=== PATIENT | male | born 1945 | race Caucasian/White ===

== ENCOUNTER 2016-12-25 16:19 | Emergency (ER) | payer OTHER ==
[2016-12-25 16:33] VITALS: BMI 31.8
--- NOTE | 2016-12-25 17:05 | PDOC ---
History of Present Illness - General History Source: Patient, Family, Old Records Exam Limitations: No Limitations - History of Present Illness Initial Comments: 12/25/16 17:36 The patient is a 71 year old male presenting with his , with a significant past medical history of diabetes, hypertension, COPD, CVA, HLD, and CAD s/p cardiac stents (x6) (on Plavix), who presents to the emergency department with hematuria and urgency since this morning. He also reports persistent back pain but is not sure if it correlates with his chief complaints. He reports that he took 1 dose of Cipro that his had. The patient has an aortic valve replacement scheduled for 3 weeks from this date. The patient denies chest pain, shortness of breath, headache and dizziness. Denies fever, chills, nausea, vomit, diarrhea and constipation. Allergies: None Past surgical history: Cardiac stents (x6) Social history: No alcohol, tobacco PMD: Dr. Burton Chappell [employer]working [employer] - Dr. 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 Mclaughlin <Shola Martino - Last Filed: 12/25/16 17:36> <Tressa Rees - Last Filed: 12/25/16 22:33> - General Chief Complaint: Hematuria Stated Complaint: BLOOD IN URINE Time Seen by Provider: 12/25/16 16:42 Past History <Shola Martino - Last Filed: 12/25/16 17:36> - Past Medical History Anemia: No Asthma: Yes Cancer: No Cardiac Disorders: Yes (hx chest pains, cardiac stents,valve problems) CVA: Yes (no weekness.) COPD: Yes CHF: No Dementia: No Diabetes: No GI Disorders: No Disorders: No HTN: No Hypercholesterolemia: Yes Liver Disease: No Seizures: No Thyroid Disease: No - Surgical History Abdominal Surgery: No Appendectomy: No Cardiac Surgery: Yes (cardiac stents) Cholecystectomy: No Lung Surgery: No Neurologic Surgery: No Orthopedic Surgery: No - Psycho/Social/Smoking Cessation Hx Anxiety: No Suicidal Ideation: No Smoking History: Never smoked Have you smoked in the past 12 months: No Information on smoking cessation initiated: No Hx Alcohol Use: No Drug/Substance Use Hx: No Substance Use Type: None <Tressa Rees - Last Filed: 12/25/16 22:33> - Past Medical History Allergies/Adverse Reactions: Allergies Allergy/AdvReac Type Severity Reaction Status Date / Time No Known Allergies Allergy Verified 12/25/16 16:23 Home Medications: Ambulatory Orders Aspirin [ASA -] 81 mg PO DAILY 12/25/16 Atorvastatin Ca [Lipitor] 80 mg PO HS 12/25/16 Clopidogrel Bisulfate [Plavix -] 75 mg PO DAILY 12/25/16 Cyanocobalamin (Vitamin B-12) [Vitamin B-12] 1,000 mcg SL DAILY 12/25/16 Glimepiride [Amaryl -] 4 mg PO DAILY@0700 12/25/16 Lisinopril [Zestril] 2.5 mg PO DAILY 12/25/16 Metoprolol Succinate [Toprol Xl -] 25 mg PO DAILY 12/25/16 Prednisone [Deltasone -] 10 mg PO DAILY 12/25/16 Review of Systems - Review of Systems Able to Perform ROS?: Yes Comments:: 12/25/16 17:36 GENERAL/CONSTITUTIONAL: No fever or chills. No weakness. HEAD, EYES, EARS, NOSE AND THROAT: No change in vision. No ear pain or discharge. No sore throat. CARDIOVASCULAR: No chest pain or shortness of breath RESPIRATORY: No cough, wheezing, or hemoptysis. GASTROINTESTINAL: No nausea, vomiting, diarrhea or constipation. GENITOURINARY: (+) Hematuria and urgency. MUSCULOSKELETAL: (+) Back pain. No joint or muscle swelling or pain. No neck pain. SKIN: No rash NEUROLOGIC: No headache, vertigo, loss of consciousness, or change in strength/ sensation. ENDOCRINE: No increased thirst. No abnormal weight change HEMATOLOGIC/LYMPHATIC: No anemia, easy bleeding, or history of blood clots. ALLERGIC/IMMUNOLOGIC: No hives or skin allergy. <Shola Martino - Last Filed: 12/25/16 17:36> *Physical Exam - Vital Signs Last Vital Signs Temp Pulse Resp BP Pulse Ox 98.6 F 85 18 128/54 95 12/25/16 16:23 12/25/16 16:23 12/25/16 16:23 12/25/16 16:23 12/25/16 16:23 - Physical Exam Comments: 12/25/16 17:37 GENERAL: Awake, alert, and fully oriented, in no acute distress HEAD: No signs of trauma, normocephalic, atraumatic EYES: PERRLA, EOMI, sclera anicteric, conjunctiva clear ENT: Auricles normal inspection, hearing grossly normal, nares patent, oropharynx clear without exudates. Moist mucosa NECK: Normal ROM, supple, no lymphadenopathy, JVD, or masses LUNGS: No distress, speaks full sentences, clear to auscultation bilaterally HEART: (+) Murmur. Regular rate and rhythm, normal S1 and S2, no rubs or gallops , peripheral pulses normal and equal bilaterally. ABDOMEN: (+) Protuberant belly. Soft, nontender, normoactive bowel sounds. No guarding, no rebound. No masses EXTREMITIES: Normal inspection, Normal range of motion, no edema. No clubbing or cyanosis. NEUROLOGICAL: Cranial nerves II through XII grossly intact. Normal speech, normal gait, no focal sensorimotor deficits SKIN: Warm, Dry, normal turgor, no rashes or lesions noted. <Shola Martino - Last Filed: 12/25/16 17:36> - Vital Signs Last Vital Signs Temp Pulse Resp BP Pulse Ox 98.6 F 85 18 128/54 95 12/25/16 16:23 12/25/16 16:23 12/25/16 16:23 12/25/16 16:23 12/25/16 16:23 <Tressa Rees - Last Filed: 12/25/16 22:33> ED Treatment Course - LABORATORY CBC & Chemistry Diagram: 12/25/16 17:20 12/25/16 17:20 <Shola Martino - Last Filed: 12/25/16 17:36> - LABORATORY CBC & Chemistry Diagram: 12/25/16 17:20 12/25/16 17:20 <Tressa Rees - Last Filed: 12/25/16 22:33> Medical Decision Making - Medical Decision Making 12/25/16 21:07 71-year-old male presents with hematuria, increased frequency and dysuria that started today -He denies fever, chills, chest pain, cough, dizziness, abdominal pain Past medical history significant for aortic stenosis, and he is scheduled for an aortic valve replacement on January 16. PCP is Dr. Mac Chappell He also has coronary artery disease, status post 6 cardiac stents, kidney stones CAT scan and pelvis with contrast showed 1.2 cm indeterminate hypodensity lateral mid left kidney and also 2.1 cm focus. Mid right kidney Multiple, additional bilateral renal cysts. -none nonobstructing stones and cortical scarring bilateral kidneys -There is a 5 mm dependent stone in the bladder. Enlarged prostate No bowel obstruction -No colitis, no diverticulitis -No free fluid, no free air -. Normal appendix unremarkable, pancreas and gallbladder-. Small umbilical and left inguinal region hernias containing fat, trace pericardial fluid IMP kidney stones/hematuria -pt given ABX,flomax and referred to urologist - 12/25/16 22:27 <Tressa Rees - Last Filed: 12/25/16 22:33> *DC/Admit/Observation/Transfer - Attestations Scribe Attestion: 12/25/16 17:37 Documentation prepared by Shola Martino, acting as medical billing assistant for Tressa Rees MD <Shola Martino - Last Filed: 12/25/16 17:36> <Tressa Rees - Last Filed: 12/25/16 22:33> Diagnosis at time of Disposition: Hematuria, Calculus of kidney - Discharge Dispostion Disposition: HOME - Referrals Referrals: Burton Chappell MD [Primary Care Provider] - - Patient Instructions Printed Discharge Instructions: DI for Hematuria, DI for Kidney Stones Additional Instructions: please follow up this week with Dr Chappell You should see a urologist if you have persistent symptoms Return for any worsening symptoms
[2016-12-25 17:28] LABS: BASOPHIL 0.9 % (0-2.0); EOSINOPHIL 0.3 % (0-4.5); MCH 28.3 pg (25.7-33.7); MCHC 32.7 g/dl (32.0-35.9); MEAN CELL VOLUME 86.6 fl (80-96); MEAN PLT VOLUME 7.3 fl (7.5-11.1); NEUTROPHILS 75.4 % (42.8-82.8); PLATELET COUNT 231 K/MM3 (134-434); RDW 13.8 % (11.9-15.9); WHITE BLOOD COUNT 11.6 K/mm3 (4.0-10.0)
[2016-12-25 17:40] LABS: INR 1.04 (0.82-1.09); PROTHROMBIN TIME (PATIENT) 11.5 SEC (9.98-11.88)
[2016-12-25 17:54] LABS: ALBUMIN 3.7 g/dl (3.4-5.0); ANION GAP 7 (8-16); BILIRUBIN,TOTAL 0.5 mg/dL (0.2-1.0); CALCIUM 9.1 mg/dL (8.5-10.1); CO2 30 mmol/L (21-32); CREATININE 0.9 mg/dL (0.7-1.3); GLUCOSE,RANDOM 106 mg/dL (74-106); SGOT/AST 30 U/L (15-37); SGPT/ALT 40 U/L (12-78)
[2016-12-25 17:55] LABS: ALK PHOS 78 U/L (45-117); TOT PROT 7.1 g/dl (6.4-8.2)
[2016-12-25 18:04] LABS: URINE APPEARANCE CLEAR; URINE BILIRUBIN NEGATIVE (NEGATIVE); URINE COLOR YELLOW; URINE GLUCOSE (UA) 1+ (NEGATIVE); URINE KETONE NEGATIVE (NEGATIVE); URINE LEUK ESTERASE NEGATIVE (NEGATIVE); URINE NITRITE NEGATIVE (NEGATIVE); URINE UROBILINOGEN NEGATIVE E.U./dl (0.2-1.0)
[2016-12-25 18:07] LABS: URINE BACTERIA RARE /hpf (NONE SEEN); URINE BLOOD 3+ (NEGATIVE); URINE MUCUS RARE; URINE PROTEIN 1+ (NEGATIVE); URINE RBC 1020 /hpf (0-3); URINE WBC 99 /hpf (3-5)
[2016-12-25] MEDS ORDERED: SODIUM CHLORIDE 500 ML IV STA (19:38)
[2016-12-25] MEDS ORDERED: TAMSULOSIN HCL 0.4 MG CAP.ER.24H (FP) PO ONE (22:25)
[2016-12-25] MEDS ORDERED: LEVOFLOXACIN 500 MG TABLET (FP) ONE (22:35)
[2016-12-25] MEDS ORDERED: TAMSULOSIN HCL 0.4 MG CAP.ER.24H (FP) ONE (22:35)
[2016-12-25 22:55] VITALS: BP 131/67; PULSE 80; TEMP 98.2
== END 2016-12-25 22:45 | disposition home or self-care (01) ==
LOC: JER 16:19
PROC: 3E0337Z Introduction of Electrolytic and Water Balance Substance into Peripheral Vein, Percutaneous Approach (ICD-10-PCS; principal; 2016-12-25)
DX: N20.0 Calculus of kidney (principal); Z87.442 Personal history of urinary calculi; I25.10 Atherosclerotic heart disease of native coronary artery without angina pectoris; I10 Essential (primary) hypertension; Z95.5 Presence of coronary angioplasty implant and graft; E11.9 Type 2 diabetes mellitus without complications; Z79.84 Long term (current) use of oral hypoglycemic drugs; J44.9 Chronic obstructive pulmonary disease, unspecified; E78.00 Pure hypercholesterolemia, unspecified; I35.0 Nonrheumatic aortic (valve) stenosis; Z86.73 Personal history of transient ischemic attack (TIA), and cerebral infarction without residual deficits; Z79.01 Long term (current) use of anticoagulants
CPT/HCPCS: 36415; 74177-TC; 80053; 81003; 81015; 85025; 85610; 87086; 96360; 99282-25

== ENCOUNTER 2020-01-22 09:55 | Day surgery (SDC) | payer OTHER ==
[2020-01-13 15:50] VITALS: BMI 30.9
[2020-01-22] MEDS ORDERED: LIDOCAINE HCL/PF 2% SDV 5ML VIAL ONE (10:23)
[2020-01-22] MEDS ORDERED: PROPOFOL 20 ML ONE ×2 (10:23)
[2020-01-22 12:26] VITALS: TEMP 98.2
[2020-01-22 13:14] VITALS: BP 120/66; PULSE 82
--- NOTE | 2020-01-27 15:14 | PATH ---
Surgical Pathology Report Patient Name: TEDDY PARK Med. Rec. #: [id number] /Age/Gender: 1945 (Age: 74) / M Account: [id number] Location: [facility] AMBUL[facility]ORY Taken: 01/22/2020 Received: 01/22/2020 Reported: 01/27/2020 Physicians: Krissy Cao M.D. Specimen(s) Received A: SECOND PORTION OF DUODENUM B: GASTRIC ANTRUM C: GE JUNCTION D: MID ESOPHAGUS Clinical History Dysphagia Postoperative diagnosis: Gastritis Final Diagnosis A. SECOND PORTION OF DUODENUM, BIOPSY: DUODENAL MUCOSA WITH NO PATHOLOGIC FINDINGS. B. GASTRIC ANTRUM, BIOPSY: MILD CHRONIC GASTRITIS WITH FEATURES OF REACTIVE GASTROPATHY. IMMUNOSTAIN IS NEGATIVE FOR H. PYLORI ORGANISMS. C. GE JUNCTION, BIOPSY: ESOPHAGOGASTRIC JUNCTIONAL (SQUAMOCOLUMNAR) MUCOSA SHOWING MILD CHRONIC INFLAMMATION. NEGATIVE FOR INTESTINAL METAPLASIA. D. MIDESOPHAGUS, BIOPSY: ESOPHAGEAL (SQUAMOUS) MUCOSA WITH NO PATHOLOGIC FINDINGS. NO COLUMNAR EPITHELIUM/INTESTINAL METAPLASIA IS IDENTIFIED. Electronically Signed Vika Medel M.D. Gross Description A. Received in formalin, labeled "biopsy second portion of duodenum" is a bright, irregular portion of soft tissue measuring 0.3 cm. in greatest dimension. The specimen is submitted in toto in one cassette. B. Received in formalin, labeled "biopsy gastric antrum" is a bright, irregular portion of soft tissue measuring 0.5 cm. in greatest dimension. The specimen is submitted in toto in one cassette. C. Received in formalin, labeled "biopsy GE junction" is a bright, irregular portion of soft tissue measuring 0.5 cm. in greatest dimension. The specimen is submitted in toto in one cassette. D. Received in formalin, labeled "biopsy mid esophagus" is a bright, irregular portion of soft tissue measuring 0.2 cm. in greatest dimension. The specimen is submitted in toto in one cassette. 01/23/2020 [facility]01/23/2020
== END 2020-01-22 12:55 | disposition home or self-care (01) ==
LOC: FASU 09:55
PROVIDERS: ATTEND Internal Medicine Gastroenterology
PROC: 0DB68ZX Excision of Stomach, Via Natural or Artificial Opening Endoscopic, Diagnostic (ICD-10-PCS; 2020-01-22)
PROC: 0DB48ZX Excision of Esophagogastric Junction, Via Natural or Artificial Opening Endoscopic, Diagnostic (ICD-10-PCS; 2020-01-22)
PROC: 0DB28ZX Excision of Middle Esophagus, Via Natural or Artificial Opening Endoscopic, Diagnostic (ICD-10-PCS; 2020-01-22)
PROC: 0DB98ZX Excision of Duodenum, Via Natural or Artificial Opening Endoscopic, Diagnostic (ICD-10-PCS; principal; 2020-01-22 11:50)
DX: K29.50 Unspecified chronic gastritis without bleeding (principal); K31.9 Disease of stomach and duodenum, unspecified; K20.9 Esophagitis, unspecified; R13.10 Dysphagia, unspecified
CPT/HCPCS: 88305-TC; 88342-TC

== ENCOUNTER 2020-08-07 04:12 | Inpatient (IN) | payer OTHER ==
[2020-08-07] MEDS ORDERED: ACETAMINOPHEN 1000 MG/100 ML VIAL (NON FORMULARY) IVPB ONE (08:22)
[2020-08-07] MEDS ORDERED: DEXTROSE 5%-0.45% SALINE 1,000 ML IV SCH (08:30)
[2020-08-07] MEDS ORDERED: ceFAZolin 2 GRAM PREMIX BAG IVPB SCH (09:00)
[2020-08-07] MEDS ORDERED: ALBUTEROL SO4 HFA INHALER IH PRN (09:01)
[2020-08-07] MEDS ORDERED: ceFAZolin SODIUM 1 GM VIAL ONE (09:13)
[2020-08-07] MEDS ORDERED: HEPARIN NA (PORCINE) 5,000 UNITS/ML 1ML VIAL SQ SCH ×2 (10:00)
[2020-08-07] MEDS ORDERED: ACETAMINOPHEN INJECTION 100 ML IVPB ONE (10:01)
[2020-08-07 10:21] LABS: BASO % 0.6 % (0-2.0); EOS % 0.4 % (0-4.5); HEMATOCRIT 36.3 % (35.4-49); HEMOGLOBIN 12.1 GM/dL (11.7-16.9); LYMPH % 7.6 % (8-40); MCH 26.9 pg (25.7-33.7); MCHC 33.3 g/dl (32.0-35.9); MEAN CELL VOLUME 80.9 fl (80-96); MEAN PLT VOLUME 7.5 fl (7.5-11.1); MONO % 4.3 % (3.8-10.2); NEUT % 87.1 % (42.8-82.8); PLATELET COUNT 246 K/MM3 (134-434); RBC 4.49 M/mm3 (4.00-5.60); RDW 14.2 % (11.9-15.9); WHITE BLOOD COUNT 12.9 K/mm3 (4.0-10.0)
[2020-08-07 10:40] LABS: CALCIUM 8.9 mg/dL (8.5-10.1); POTASSIUM 3.7 mmol/L (3.5-5.1)
[2020-08-07 10:41] LABS: ALBUMIN 3.3 g/dl (3.4-5.0); BLOOD UREA NITROGEN 13.2 mg/dL (7-18)
[2020-08-07 10:44] LABS: CREATININE 0.8 mg/dL (0.55-1.3)
[2020-08-07 10:46] LABS: TOT PROT 6.6 g/dl (6.4-8.2)
[2020-08-07 12:23] LABS: EPI CELLS 1 /uL (0-25.1); HYALINE CASTS 6 /uL (0-3.1); URINE APPEARANCE CLOUDY; URINE BACTERIA 1106 /uL (0-1359); URINE BILIRUBIN NEGATIVE (NEGATIVE); URINE COLOR YELLOW; URINE GLUCOSE (UA) NEGATIVE (NEGATIVE); URINE KETONE NEGATIVE (NEGATIVE); URINE LEUK ESTERASE 2+ (NEGATIVE); URINE NITRITE NEGATIVE (NEGATIVE); URINE PROTEIN 1+ (NEGATIVE); URINE RBC 72 /uL (0-23.9); URINE UROBILINOGEN 0.2 mg/dL (0.2-1.0); URINE WBC 728 /uL (0-25.8)
[2020-08-07] MEDS: PIPERACILLIN/TAZOB 3.375 GM 3.375 GM in DEXTROSE 5%-WATER - 50 ML IVPB SCH ×3 (13:36→22:42)
[2020-08-07] MEDS: BUDESONIDE/FORMETEROL FUMARATE 80/4.5 mcg INHALER IH SCH ×2 (15:23→22:43)
[2020-08-07] MEDS: ASPIRIN 81 MG CHEWABLE TABLETS PO SCH (15:23)
[2020-08-07] MEDS: predniSONE 5 MG TABLET (UD) PO SCH (15:23)
[2020-08-07] MEDS: INSULIN SLIDING SCALE (NOVOLOG) 1 VIAL SQ SCH ×3 (15:23→22:43)
[2020-08-07] MEDS ORDERED: DEXTROSE 5%-WATER - 50 ML IVPB ONE ×2 (17:37→22:01)
[2020-08-07] MEDS ORDERED: PIPERACILLIN/TAZOBACTAM 3.375 GM VIAL IVPB ONE ×2 (17:37→22:00)
[2020-08-07] MEDS: TAMSULOSIN HCL 0.4 MG CAP PO SCH (20:18)
[2020-08-07] MEDS: metoPROLOL SUCCINATE 25 MG TAB.SR.24H (FP) PO SCH (22:42)
[2020-08-07] MEDS: EZETIMIBE 10 MG TABLET (FP) PO SCH (22:42)
[2020-08-07] MEDS: ATORVASTATIN CA 80 MG TABLET (FP) PO SCH (22:42)
[2020-08-08] MEDS ORDERED: PIPERACILLIN/TAZOBACTAM 3.375 GM VIAL IVPB ONE ×3 (03:09→14:57)
[2020-08-08] MEDS ORDERED: DEXTROSE 5%-WATER - 50 ML IVPB ONE ×3 (03:10→14:57)
[2020-08-08] MEDS: PIPERACILLIN/TAZOB 3.375 GM 3.375 GM in DEXTROSE 5%-WATER - 50 ML IVPB SCH ×3 (03:43→15:15)
[2020-08-08] MEDS: ACETAMINOPHEN 325 MG TABLET (FP) PO PRN ×2 (03:43→21:19)
[2020-08-08] MEDS: INSULIN SLIDING SCALE (NOVOLOG) 1 VIAL SQ SCH ×3 (06:23→17:10)
[2020-08-08 08:58] LABS: BASO % 0.2 % (0-2.0); EOS % 0.2 % (0-4.5); HEMATOCRIT 36.4 % (35.4-49); HEMOGLOBIN 11.8 GM/dL (11.7-16.9); LYMPH % 9.4 % (8-40); MCH 26.4 pg (25.7-33.7); MCHC 32.3 g/dl (32.0-35.9); MEAN CELL VOLUME 81.9 fl (80-96); MEAN PLT VOLUME 8.2 fl (7.5-11.1); MONO % 8.5 % (3.8-10.2); NEUT % 81.7 % (42.8-82.8); PLATELET COUNT 225 K/MM3 (134-434); RBC 4.45 M/mm3 (4.00-5.60); RDW 14.5 % (11.9-15.9); WHITE BLOOD COUNT 21.7 K/mm3 (4.0-10.0)
[2020-08-08 09:12] LABS: POTASSIUM 3.3 mmol/L (3.5-5.1)
[2020-08-08 09:15] LABS: ALBUMIN 2.9 g/dl (3.4-5.0); CALCIUM 8.7 mg/dL (8.5-10.1)
[2020-08-08 09:16] LABS: BLOOD UREA NITROGEN 16.2 mg/dL (7-18); MAGNESIUM 1.7 mg/dL (1.8-2.4)
[2020-08-08 09:18] LABS: PHOSPHOROUS 2.9 mg/dL (2.5-4.9)
[2020-08-08 09:19] LABS: CREATININE 0.9 mg/dL (0.55-1.3)
[2020-08-08 09:20] LABS: BILIRUBIN,TOTAL 1.3 mg/dL (0.2-1); TOT PROT 6.2 g/dl (6.4-8.2)
[2020-08-08] MEDS ORDERED: PT OWN MED DRAWER 7, Y5N ONE ×2 (09:26→20:36)
[2020-08-08] MEDS: ASPIRIN 81 MG CHEWABLE TABLETS PO SCH (09:33)
[2020-08-08] MEDS: LACTATED RINGERS SOLUTION 1,000 ML IV SCH (09:33)
[2020-08-08] MEDS: predniSONE 5 MG TABLET (UD) PO SCH (09:33)
[2020-08-08] MEDS: ENOXAPARIN NA (PORCINE) 40 MG/0.4 ML DISP.SYRIN SQ SCH (09:33)
[2020-08-08] MEDS: TAMSULOSIN HCL 0.4 MG CAP PO SCH (09:33)
[2020-08-08] MEDS: BUDESONIDE/FORMETEROL FUMARATE 80/4.5 mcg INHALER IH SCH ×3 (09:34→21:20)
[2020-08-08] MEDS: metoPROLOL SUCCINATE 25 MG TAB.SR.24H (FP) PO SCH ×3 (09:34→21:20)
[2020-08-08] MEDS ORDERED: MAGNESIUM OXIDE 400 MG TABLET (FP) PO ONE (10:15)
[2020-08-08] MEDS ORDERED: POTASSIUM CHLORIDE TABS 20 MEQ TABLET.ER (FP) PO ONE (10:15)
[2020-08-08 11:06] LABS: ANISOCYTOSIS 0; HELMET CELLS 0; HOWELL-JOLLY BODIES 0; MACROCYTOSIS 0; OVALOCYTE 0; PLATELET ESTIMATE NORMAL; ROULEAU 0; SICKELED CELLS 0; TARGET CELLS 0; TEAR DROP CELLS 0; TOXIC GRANULATION 0
[2020-08-08] MEDS: AMPICILLIN NA/SULBACTAM NA 3 GM in SODIUM CHLORIDE 100 ML IVPB SCH (20:42)
[2020-08-08] MEDS: EZETIMIBE 10 MG TABLET (FP) PO SCH ×2 (20:50→21:20)
[2020-08-08] MEDS: ATORVASTATIN CA 80 MG TABLET (FP) PO SCH ×2 (20:50→21:20)
[2020-08-09] MEDS: LACTATED RINGERS SOLUTION 1,000 ML IV SCH ×2 (00:36→09:46)
[2020-08-09] MEDS ORDERED: PT OWN MED DRAWER 7, Y5N ONE ×5 (01:27→20:15)
[2020-08-09] MEDS: AMPICILLIN NA/SULBACTAM NA 3 GM in SODIUM CHLORIDE 100 ML IVPB SCH ×4 (02:22→21:00)
[2020-08-09] MEDS: INSULIN SLIDING SCALE (NOVOLOG) 1 VIAL SQ SCH ×3 (06:19→17:03)
[2020-08-09 08:51] LABS: HEMATOCRIT 33.2 % (35.4-49); HEMOGLOBIN 10.9 GM/dL (11.7-16.9); MCH 26.7 pg (25.7-33.7); MCHC 32.9 g/dl (32.0-35.9); MEAN CELL VOLUME 81.3 fl (80-96); PLATELET COUNT 132 K/MM3 (134-434); RBC 4.09 M/mm3 (4.00-5.60); RDW 14.7 % (11.9-15.9); WHITE BLOOD COUNT 15.6 K/mm3 (4.0-10.0)
[2020-08-09 09:01] LABS: POTASSIUM 4.2 mmol/L (3.5-5.1)
[2020-08-09 09:03] LABS: CALCIUM 8.3 mg/dL (8.5-10.1)
[2020-08-09 09:04] LABS: ALBUMIN 2.4 g/dl (3.4-5.0); BLOOD UREA NITROGEN 17.1 mg/dL (7-18); MAGNESIUM 1.9 mg/dL (1.8-2.4)
[2020-08-09 09:07] LABS: CREATININE 0.6 mg/dL (0.55-1.3); PHOSPHOROUS 2.2 mg/dL (2.5-4.9)
[2020-08-09 09:08] LABS: BILIRUBIN,TOTAL 0.6 mg/dL (0.2-1); TOT PROT 5.4 g/dl (6.4-8.2)
[2020-08-09] MEDS ORDERED: NAPH,MB-DB/K PH,MBDB POWDER PACKET PO ONE (09:44)
[2020-08-09] MEDS: ASPIRIN 81 MG CHEWABLE TABLETS PO SCH (09:47)
[2020-08-09] MEDS: predniSONE 5 MG TABLET (UD) PO SCH (09:47)
[2020-08-09] MEDS: TAMSULOSIN HCL 0.4 MG CAP PO SCH (09:47)
[2020-08-09] MEDS: ACETAMINOPHEN 325 MG TABLET (FP) PO PRN (09:47)
[2020-08-09] MEDS: metoPROLOL SUCCINATE 25 MG TAB.SR.24H (FP) PO SCH ×2 (09:48→21:01)
[2020-08-09] MEDS: ENOXAPARIN NA (PORCINE) 40 MG/0.4 ML DISP.SYRIN SQ SCH (09:48)
[2020-08-09] MEDS: BUDESONIDE/FORMETEROL FUMARATE 80/4.5 mcg INHALER IH SCH ×2 (09:49→21:01)
[2020-08-09] MEDS ORDERED: ACETAMINOPHEN 325 MG TABLET (FP) PO PRN (11:51)
[2020-08-09] MEDS: LACTOBACILLUS ACIDOPHILUS 1 TABLET PO SCH (14:03)
[2020-08-09] MEDS: EZETIMIBE 10 MG TABLET (FP) PO SCH (21:01)
[2020-08-09] MEDS: ATORVASTATIN CA 80 MG TABLET (FP) PO SCH (21:01)
[2020-08-10] MEDS ORDERED: PT OWN MED DRAWER 7, Y5N ONE ×3 (01:14→15:55)
[2020-08-10] MEDS: LACTATED RINGERS SOLUTION 1,000 ML IV SCH ×2 (01:37→21:50)
[2020-08-10] MEDS: AMPICILLIN NA/SULBACTAM NA 3 GM in SODIUM CHLORIDE 100 ML IVPB SCH ×4 (02:13→21:50)
[2020-08-10] MEDS: INSULIN SLIDING SCALE (NOVOLOG) 1 VIAL SQ SCH ×3 (06:00→17:36)
[2020-08-10 08:36] LABS: HEMATOCRIT 34.6 % (35.4-49); HEMOGLOBIN 11.3 GM/dL (11.7-16.9); MCH 26.7 pg (25.7-33.7); MCHC 32.6 g/dl (32.0-35.9); MEAN CELL VOLUME 81.7 fl (80-96); MEAN PLT VOLUME 8.8 fl (7.5-11.1); PLATELET COUNT 197 K/MM3 (134-434); RBC 4.24 M/mm3 (4.00-5.60); RDW 14.4 % (11.9-15.9); WHITE BLOOD COUNT 13.7 K/mm3 (4.0-10.0)
[2020-08-10] MEDS: predniSONE 5 MG TABLET (UD) PO SCH ×2 (08:42→09:00)
[2020-08-10] MEDS: TAMSULOSIN HCL 0.4 MG CAP PO SCH ×2 (08:42→09:00)
[2020-08-10] MEDS: ENOXAPARIN NA (PORCINE) 40 MG/0.4 ML DISP.SYRIN SQ SCH ×2 (08:42→09:01)
[2020-08-10] MEDS: LACTOBACILLUS ACIDOPHILUS 1 TABLET PO SCH ×2 (08:42→09:00)
[2020-08-10] MEDS: metoPROLOL SUCCINATE 25 MG TAB.SR.24H (FP) PO SCH ×3 (08:43→21:49)
[2020-08-10] MEDS: ASPIRIN 81 MG CHEWABLE TABLETS PO SCH ×2 (08:43→09:00)
[2020-08-10] MEDS: BUDESONIDE/FORMETEROL FUMARATE 80/4.5 mcg INHALER IH SCH ×3 (08:43→21:54)
[2020-08-10 08:44] LABS: POTASSIUM 3.8 mmol/L (3.5-5.1)
[2020-08-10 08:50] LABS: ALBUMIN 2.8 g/dl (3.4-5.0); BLOOD UREA NITROGEN 9.7 mg/dL (7-18); CALCIUM 8.7 mg/dL (8.5-10.1); MAGNESIUM 1.9 mg/dL (1.8-2.4)
[2020-08-10 08:55] LABS: BILIRUBIN,TOTAL 0.6 mg/dL (0.2-1); TOT PROT 6.3 g/dl (6.4-8.2)
[2020-08-10 09:06] LABS: CREATININE 0.6 mg/dL (0.55-1.3); PHOSPHOROUS 2.9 mg/dL (2.5-4.9)
[2020-08-10] MEDS: EZETIMIBE 10 MG TABLET (FP) PO SCH (21:49)
[2020-08-10] MEDS: ATORVASTATIN CA 80 MG TABLET (FP) PO SCH (21:49)
[2020-08-11] MEDS: AMPICILLIN NA/SULBACTAM NA 3 GM in SODIUM CHLORIDE 100 ML IVPB SCH ×4 (02:01→21:23)
[2020-08-11 08:23] LABS: HEMATOCRIT 33.4 % (35.4-49); MCH 26.8 pg (25.7-33.7); MEAN CELL VOLUME 81.1 fl (80-96); MEAN PLT VOLUME 8.2 fl (7.5-11.1); PLATELET COUNT 223 K/MM3 (134-434); RBC 4.12 M/mm3 (4.00-5.60); RDW 14.4 % (11.9-15.9)
[2020-08-11 08:43] LABS: POTASSIUM 3.7 mmol/L (3.5-5.1)
[2020-08-11 08:49] LABS: CALCIUM 8.5 mg/dL (8.5-10.1); CREATININE 0.6 mg/dL (0.55-1.3)
[2020-08-11 08:50] LABS: ALBUMIN 2.7 g/dl (3.4-5.0)
[2020-08-11 08:51] LABS: BILIRUBIN,TOTAL 0.6 mg/dL (0.2-1)
[2020-08-11] MEDS ORDERED: PT OWN MED DRAWER 7, Y5N ONE ×3 (10:29→20:55)
[2020-08-11] MEDS: metoPROLOL SUCCINATE 25 MG TAB.SR.24H (FP) PO SCH ×2 (10:32→21:23)
[2020-08-11] MEDS: TAMSULOSIN HCL 0.4 MG CAP PO SCH (10:33)
[2020-08-11] MEDS: predniSONE 5 MG TABLET (UD) PO SCH (10:33)
[2020-08-11] MEDS: ENOXAPARIN NA (PORCINE) 40 MG/0.4 ML DISP.SYRIN SQ SCH (10:33)
[2020-08-11] MEDS: LACTOBACILLUS ACIDOPHILUS 1 TABLET PO SCH (10:33)
[2020-08-11] MEDS: BUDESONIDE/FORMETEROL FUMARATE 80/4.5 mcg INHALER IH SCH ×2 (10:34→21:25)
[2020-08-11] MEDS ORDERED: MIDAZOLAM HCL 2 MG/2 ML SINGLE DOSE VIAL ONE (10:40)
[2020-08-11] MEDS ORDERED: ALBUTEROL SO4 HFA INHALER IH PRN (12:34)
[2020-08-11] MEDS ORDERED: ACETAMINOPHEN 325 MG TABLET (FP) PO PRN (12:34)
[2020-08-11] MEDS: LACTATED RINGERS SOLUTION 1,000 ML IV SCH ×3 (12:41→17:46)
[2020-08-11] MEDS ORDERED: ONDANSETRON 4 MG/2 ML VIAL IVPUSH PRN (13:17)
[2020-08-11] MEDS: EZETIMIBE 10 MG TABLET (FP) PO SCH (21:24)
[2020-08-11] MEDS: ATORVASTATIN CA 80 MG TABLET (FP) PO SCH (21:28)
[2020-08-12] MEDS ORDERED: PT OWN MED DRAWER 7, Y5N ONE ×3 (01:46→21:14)
[2020-08-12] MEDS: AMPICILLIN NA/SULBACTAM NA 3 GM in SODIUM CHLORIDE 100 ML IVPB SCH ×4 (03:08→21:36)
[2020-08-12] MEDS: predniSONE 5 MG TABLET (UD) PO SCH (09:33)
[2020-08-12] MEDS: LACTOBACILLUS ACIDOPHILUS 1 TABLET PO SCH (09:33)
[2020-08-12] MEDS: metoPROLOL SUCCINATE 25 MG TAB.SR.24H (FP) PO SCH ×2 (09:33→21:37)
[2020-08-12] MEDS: ENOXAPARIN NA (PORCINE) 40 MG/0.4 ML DISP.SYRIN SQ SCH (09:33)
[2020-08-12] MEDS: TAMSULOSIN HCL 0.4 MG CAP PO SCH (09:34)
[2020-08-12 09:58] LABS: HEMATOCRIT 32.7 % (35.4-49); HEMOGLOBIN 10.6 GM/dL (11.7-16.9); MCH 26.4 pg (25.7-33.7); MCHC 32.4 g/dl (32.0-35.9); MEAN CELL VOLUME 81.6 fl (80-96); MEAN PLT VOLUME 8.7 fl (7.5-11.1); PLATELET COUNT 216 K/MM3 (134-434); WHITE BLOOD COUNT 13.1 K/mm3 (4.0-10.0)
[2020-08-12 10:13] LABS: POTASSIUM 3.8 mmol/L (3.5-5.1)
[2020-08-12 10:55] LABS: BLOOD UREA NITROGEN 9.7 mg/dL (7-18); CALCIUM 8.8 mg/dL (8.5-10.1)
[2020-08-12 10:58] LABS: CREATININE 0.4 mg/dL (0.55-1.3)
[2020-08-12] MEDS: BUDESONIDE/FORMETEROL FUMARATE 80/4.5 mcg INHALER IH SCH ×2 (12:36→21:36)
[2020-08-12] MEDS: LACTATED RINGERS SOLUTION 1,000 ML IV SCH (15:00)
[2020-08-12] MEDS: valACYclovir HCL 500 MG TABLET (FP) PO SCH ×2 (15:45→21:36)
[2020-08-12] MEDS: ATORVASTATIN CA 80 MG TABLET (FP) PO SCH (21:36)
[2020-08-12] MEDS: EZETIMIBE 10 MG TABLET (FP) PO SCH (21:36)
[2020-08-13] MEDS ORDERED: PT OWN MED DRAWER 7, Y5N ONE ×2 (02:08→09:53)
[2020-08-13] MEDS: AMPICILLIN NA/SULBACTAM NA 3 GM in SODIUM CHLORIDE 100 ML IVPB SCH ×3 (02:46→14:08)
[2020-08-13 09:19] LABS: HEMATOCRIT 30.7 % (35.4-49); HEMOGLOBIN 10.4 GM/dL (11.7-16.9); MCH 27.2 pg (25.7-33.7); MCHC 33.7 g/dl (32.0-35.9); MEAN CELL VOLUME 80.6 fl (80-96); MEAN PLT VOLUME 8.2 fl (7.5-11.1); PLATELET COUNT 247 K/MM3 (134-434); RBC 3.82 M/mm3 (4.00-5.60); RDW 13.9 % (11.9-15.9); WHITE BLOOD COUNT 10.5 K/mm3 (4.0-10.0)
[2020-08-13 09:40] LABS: POTASSIUM 4.3 mmol/L (3.5-5.1)
[2020-08-13 09:52] LABS: ALBUMIN 2.6 g/dl (3.4-5.0); BILIRUBIN,TOTAL 0.7 mg/dL (0.2-1); BLOOD UREA NITROGEN 6.9 mg/dL (7-18)
[2020-08-13 09:53] LABS: TOT PROT 5.7 g/dl (6.4-8.2)
[2020-08-13 09:54] LABS: CREATININE 0.6 mg/dL (0.55-1.3)
[2020-08-13 09:55] LABS: CALCIUM 8.6 mg/dL (8.5-10.1); PHOSPHOROUS 2.9 mg/dL (2.5-4.9)
[2020-08-13 09:56] LABS: MAGNESIUM 1.9 mg/dL (1.8-2.4)
[2020-08-13] MEDS: predniSONE 5 MG TABLET (UD) PO SCH (09:58)
[2020-08-13] MEDS: valACYclovir HCL 500 MG TABLET (FP) PO SCH (09:58)
[2020-08-13] MEDS: LACTOBACILLUS ACIDOPHILUS 1 TABLET PO SCH (09:58)
[2020-08-13] MEDS: metoPROLOL SUCCINATE 25 MG TAB.SR.24H (FP) PO SCH (09:59)
[2020-08-13] MEDS: TAMSULOSIN HCL 0.4 MG CAP PO SCH (09:59)
[2020-08-13] MEDS: BUDESONIDE/FORMETEROL FUMARATE 80/4.5 mcg INHALER IH SCH (09:59)
[2020-08-13] MEDS: ENOXAPARIN NA (PORCINE) 40 MG/0.4 ML DISP.SYRIN SQ SCH (10:00)
[2020-08-13 12:41] VITALS: BMI 31.3
[2020-08-13 15:06] VITALS: BP 129/55; PULSE 92; TEMP 98.5
== END 2020-08-13 15:07 | disposition home or self-care (01) | DRG 665 ==
LOC: JASU-SURG 04:12 → J2C 08:42 → J8W 15:12
PROVIDERS: ADMIT Urology; ATTEND Internal Medicine
PROC: 0V508ZZ Destruction of Prostate, Via Natural or Artificial Opening Endoscopic (ICD-10-PCS; principal; 2020-08-11 11:00)
DX: T83.511A Infection and inflammatory reaction due to indwelling urethral catheter, initial encounter (principal); A41.9 Sepsis, unspecified organism; N39.0 Urinary tract infection, site not specified; I10 Essential (primary) hypertension; E11.9 Type 2 diabetes mellitus without complications; J44.9 Chronic obstructive pulmonary disease, unspecified; E78.5 Hyperlipidemia, unspecified; N40.1 Benign prostatic hyperplasia with lower urinary tract symptoms; R33.8 Other retention of urine; I25.10 Atherosclerotic heart disease of native coronary artery without angina pectoris; B00.9 Herpesviral infection, unspecified; K42.9 Umbilical hernia without obstruction or gangrene; B95.2 Enterococcus as the cause of diseases classified elsewhere; E87.6 Hypokalemia; E66.9 Obesity, unspecified; Z68.31 Body mass index [BMI] 31.0-31.9, adult; Z95.2 Presence of prosthetic heart valve; Z95.5 Presence of coronary angioplasty implant and graft
CPT/HCPCS: 36415; 80048; 80053; 81003; 82962; 83036; 83605; 83615; 83735; 84100; 85025; 85027; 86140; 87040; 87086; 87186; 93005; 93010; 94760; C9803; J0131; U0003

== ENCOUNTER 2021-09-14 10:14 | Inpatient (IN) | payer OTHER ==
[2021-09-14 11:16] LABS: BASO % 0.6 % (0-2.0); EOS % 0.2 % (0-4.5); HEMATOCRIT 36.8 % (35.4-49); HEMOGLOBIN 12.1 GM/dL (11.7-16.9); LYMPH % 11.7 % (8-40); MCHC 32.9 g/dl (32.0-35.9); MEAN PLT VOLUME 7.4 fl (7.5-11.1); MONO % 8.8 % (3.8-10.2); NEUT % 78.7 % (42.8-82.8); PLATELET COUNT 345 10^3/uL (134-434); RBC 4.49 M/mm3 (4.00-5.60)
[2021-09-14 11:19] LABS: VENOUS BASE EXCESS 1.1 mmol/L (-2-2); VENOUS O2 SATURATION 41.9 % (70-80); VENOUS PCO2 68.5 mmHg (38-52); VENOUS PH 7.261 (7.310-7.410)
[2021-09-14 11:22] LABS: INR 1.26 (0.83-1.09); PROTHROMBIN TIME (PATIENT) 14.5 SEC (9.7-13.0)
[2021-09-14 11:25] LABS: ACTIVATED PTT 36.6 SECONDS (25.2-36.5)
[2021-09-14 11:32] LABS: EPI CELLS 6 /uL (0-25.1); HYALINE CASTS 1 /uL (0-3.1); PH,URINE 5.5 (5.0-8.0); URINE APPEARANCE CLEAR; URINE BACTERIA 4 /uL (0-1359); URINE BILIRUBIN NEGATIVE (NEGATIVE); URINE COLOR YELLOW; URINE GLUCOSE (UA) TRACE (NEGATIVE); URINE KETONE TRACE (NEGATIVE); URINE LEUK ESTERASE NEGATIVE (NEGATIVE); URINE NITRITE NEGATIVE (NEGATIVE); URINE PROTEIN 1+ (NEGATIVE); URINE RBC 243 /uL (0-23.9); URINE UROBILINOGEN 0.2 mg/dL (0.2-1.0); URINE WBC 54 /uL (0-25.8)
[2021-09-14 11:38] LABS: CALCIUM 8.7 mg/dL (8.5-10.1)
[2021-09-14 11:39] LABS: ALBUMIN 3.1 g/dl (3.4-5.0); BLOOD UREA NITROGEN 15.5 mg/dL (7-18); MAGNESIUM 1.8 mg/dL (1.8-2.4)
[2021-09-14 11:42] LABS: CREATININE 0.8 mg/dL (0.55-1.3)
[2021-09-14 11:43] LABS: TOT PROT 6.6 g/dl (6.4-8.2)
[2021-09-14 11:44] LABS: BILIRUBIN,TOTAL 0.4 mg/dL (0.2-1)
[2021-09-14 11:47] LABS: N-TERMINAL BNP 579.4 pg/ml (5-450)
[2021-09-14 11:50] LABS: LACTIC ACID 2.2 mmol/L (0.4-2.0)
[2021-09-14] MEDS ORDERED: ASPIRIN 81 MG CHEWABLE TABLETS PO ONE (12:18)
[2021-09-14 12:22] LABS: ARTERIAL BLD GAS O2 SATURATION 95.5 % (95-98); ARTERIAL BLOOD GAS BASE EXCESS 6.8 mmol/L (-2-2); ARTERIAL BLOOD GAS PO2 84.5 mmHg (80-100); ARTERIAL BLOOD GAS pH 7.339 (7.350-7.450)
[2021-09-14] MEDS ORDERED: ASPIRIN 81 MG CHEWABLE TABLETS ONE (13:17)
[2021-09-14] MEDS ORDERED: FUROSEMIDE 40 MG/4 ML INJECTABLE VIAL IVPUSH ONE (16:31)
[2021-09-14] MEDS ORDERED: FUROSEMIDE 40 MG/4 ML INJECTABLE VIAL ONE (16:43)
[2021-09-14 18:02] LABS: MAGNESIUM 1.9 mg/dL (1.8-2.4)
[2021-09-14 18:11] LABS: N-TERMINAL BNP 1061.2 pg/ml (5-450)
[2021-09-14] MEDS ORDERED: methylPREDNISolone NA SUCC 125 MG/2 ML VIAL IVPUSH ONE (20:44)
[2021-09-14] MEDS ORDERED: MAGNESIUM SULF 50% (8.12 MEQ/2 ML-1 GM VIAL) IVPB ONE (20:44)
[2021-09-14] MEDS ORDERED: ALBUTEROL SO4 0.083% IH SOL 2.5 MG/3 ML VIAL.NEB. NEB PRN (20:44)
[2021-09-14] MEDS ORDERED: methylPREDNISolone NA SUCC 125 MG/2 ML VIAL ONE (21:14)
[2021-09-14] MEDS ORDERED: MAGNESIUM SULFATE IN WATER 2 GM/50 ML IVPB IVPB ONE (21:14)
[2021-09-14] MEDS ORDERED: FUROSEMIDE 40 MG/4 ML INJECTABLE VIAL IVPUSH SCH (21:30)
[2021-09-15] MEDS ORDERED: ENOXAPARIN NA (PORCINE) 100 MG/1 ML DISP.SYRIN SQ ONE (05:17)
[2021-09-15] MEDS: ENOXAPARIN NA (PORCINE) 120 MG/0.8 ML DISP.SYRIN SQ SCH ×3 (05:19→22:38)
[2021-09-15 07:05] LABS: HEMATOCRIT 33.2 % (35.4-49); HEMOGLOBIN 11.1 GM/dL (11.7-16.9); MCH 26.9 pg (25.7-33.7); MCHC 33.5 g/dl (32.0-35.9); MEAN CELL VOLUME 80.4 fl (80-96); MEAN PLT VOLUME 7.4 fl (7.5-11.1); PLATELET COUNT 304 10^3/uL (134-434); RBC 4.13 M/mm3 (4.00-5.60); RDW 15.5 % (11.9-15.9); WHITE BLOOD COUNT 6.7 K/mm3 (4.0-10.0)
[2021-09-15 07:45] LABS: BILIRUBIN,TOTAL 0.7 mg/dL (0.2-1); TOT PROT 6.3 g/dl (6.4-8.2)
[2021-09-15 07:46] LABS: ALBUMIN 2.8 g/dl (3.4-5.0); BLOOD UREA NITROGEN 25.8 mg/dL (7-18); CALCIUM 8.5 mg/dL (8.5-10.1)
[2021-09-15 07:47] LABS: MAGNESIUM 2.7 mg/dL (1.8-2.4)
[2021-09-15 07:48] LABS: PHOSPHOROUS 3.9 mg/dL (2.5-4.9)
[2021-09-15 07:49] LABS: CREATININE 0.7 mg/dL (0.55-1.3)
[2021-09-15 08:30] LABS: ARTERIAL BLD GAS O2 SATURATION 90.2 % (95-98); ARTERIAL BLOOD GAS BASE EXCESS 5.9 mmol/L (-2-2); ARTERIAL BLOOD GAS PO2 67.6 mmHg (80-100); ARTERIAL BLOOD GAS pH 7.277 (7.350-7.450)
[2021-09-15] MEDS: ALBUTEROL SO4 2.5/IPRATROPIUM 0.5 INH SOL 3 ML VIAL.NEB. NEB SCH ×4 (09:50→20:15)
[2021-09-15] MEDS ORDERED: AZITHROMYCIN IVPB 500 MG in DEXTROSE 5%-WATER - 250 ML IVPB SCH (10:00)
[2021-09-15] MEDS ORDERED: methylPREDNISolone NA SUCC 40 MG/1 ML VIAL IVPUSH SCH (10:00)
[2021-09-15] MEDS ORDERED: PANTOPRAZOLE 40 MG TABLET PO SCH (10:00)
[2021-09-15] MEDS ORDERED: DONEPEZIL HCL 5 MG TABLET (FP) PO SCH (10:00)
[2021-09-15] MEDS ORDERED: MUPIROCIN 2% TOPICAL OINTMENT FOR DECOLONIZATION NS SCH (11:00)
[2021-09-15 11:09] LABS: SARS-CoV-2 NAA Not Detected (Not Detected)
[2021-09-15] MEDS: FUROSEMIDE 40 MG/4 ML INJECTABLE VIAL IVPUSH SCH (11:54)
[2021-09-15] MEDS ORDERED: cefTRIAXone SODIUM 1 GM VIAL ONE (12:30)
[2021-09-15] MEDS: ASPIRIN COATED 81 MG TABLET.EC PO SCH (12:31)
[2021-09-15] MEDS ORDERED: DEXTROSE 5%-WATER - 50 ML IVPB ONE (12:31)
[2021-09-15] MEDS: PANTOPRAZOLE SODIUM 40 MG VIAL IVPUSH SCH (12:45)
[2021-09-15] MEDS: CEFTRIAXONE 1 GM in DEXTROSE 5%-WATER - 50 ML IVPB SCH (12:45)
[2021-09-15] MEDS: methylPREDNISolone NA SUCC 40 MG/1 ML VIAL IVPUSH SCH (17:24)
[2021-09-15] MEDS ORDERED: CHLORHEXIDINE GLUCONATE 4% CLEANSER FOR DECOLONIZATION TP SCH (22:00)
[2021-09-15] MEDS ORDERED: ENOXAPARIN NA (PORCINE) 30 MG/0.3 ML DISP.SYRIN SQ SCH (22:00)
[2021-09-15] MEDS: MUPIROCIN 2% TOPICAL OINTMENT FOR DECOLONIZATION NS SCH (22:37)
[2021-09-15] MEDS: DONEPEZIL HCL 5 MG TABLET (FP) PO SCH (22:37)
[2021-09-15] MEDS: CHLORHEXIDINE GLUCONATE 4% CLEANSER FOR DECOLONIZATION TP SCH (22:38)
[2021-09-15] MEDS: ATORVASTATIN CA 80 MG TABLET (FP) PO SCH (22:38)
[2021-09-16] MEDS ORDERED: HALOPERIDOL LACTATE 5 MG/ML IM ONE (02:49)
[2021-09-16] MEDS ORDERED: HALOPERIDOL LACTATE 5 MG/ML ONE (02:54)
[2021-09-16] MEDS: methylPREDNISolone NA SUCC 40 MG/1 ML VIAL IVPUSH SCH ×3 (03:06→18:37)
[2021-09-16 05:45] LABS: ARTERIAL BLD GAS O2 SATURATION 50.9 % (95-98); ARTERIAL BLOOD GAS BASE EXCESS 12.6 mmol/L (-2-2); ARTERIAL BLOOD GAS pH 7.372 (7.350-7.450)
[2021-09-16 05:46] LABS: ALLENS TEST POSITIVE
[2021-09-16 05:48] LABS: ARTERIAL BLOOD GAS PO2 29.2 mmHg (80-100)
[2021-09-16 07:29] LABS: HEMATOCRIT 31.6 % (35.4-49); HEMOGLOBIN 10.7 GM/dL (11.7-16.9); MCH 27.2 pg (25.7-33.7); MEAN CELL VOLUME 79.9 fl (80-96); PLATELET COUNT 327 10^3/uL (134-434); RBC 3.95 M/mm3 (4.00-5.60); WHITE BLOOD COUNT 9.8 K/mm3 (4.0-10.0)
[2021-09-16 07:47] LABS: ALBUMIN 2.8 g/dl (3.4-5.0); BLOOD UREA NITROGEN 37.8 mg/dL (7-18); CALCIUM 8.6 mg/dL (8.5-10.1); MAGNESIUM 2.5 mg/dL (1.8-2.4)
[2021-09-16 07:50] LABS: CREATININE 0.7 mg/dL (0.55-1.3); PHOSPHOROUS 2.1 mg/dL (2.5-4.9)
[2021-09-16 07:52] LABS: BILIRUBIN,TOTAL 0.6 mg/dL (0.2-1); TOT PROT 5.9 g/dl (6.4-8.2)
[2021-09-16] MEDS: ALBUTEROL SO4 2.5/IPRATROPIUM 0.5 INH SOL 3 ML VIAL.NEB. NEB SCH ×4 (08:05→20:10)
[2021-09-16] MEDS ORDERED: cefTRIAXone SODIUM 1 GM VIAL ONE (08:52)
[2021-09-16] MEDS ORDERED: DEXTROSE 5%-WATER - 50 ML IVPB ONE (08:52)
[2021-09-16] MEDS ORDERED: NAPH,MB-DB/K PH,MBDB POWDER PACKET PO ONE (08:54)
[2021-09-16] MEDS: ASPIRIN COATED 81 MG TABLET.EC PO SCH (09:03)
[2021-09-16] MEDS: FUROSEMIDE 40 MG/4 ML INJECTABLE VIAL IVPUSH SCH (09:04)
[2021-09-16] MEDS: ENOXAPARIN NA (PORCINE) 120 MG/0.8 ML DISP.SYRIN SQ SCH (09:04)
[2021-09-16] MEDS: PANTOPRAZOLE SODIUM 40 MG VIAL IVPUSH SCH (09:04)
[2021-09-16] MEDS: CEFTRIAXONE 1 GM in DEXTROSE 5%-WATER - 50 ML IVPB SCH (09:04)
[2021-09-16] MEDS ORDERED: QUEtiapine FUMARATE 25 MG TABLET PO ONE (10:25)
[2021-09-16] MEDS ORDERED: ENOXAPARIN NA (PORCINE) 120 MG/0.8 ML DISP.SYRIN SQ SCH (10:45)
[2021-09-16 10:53] LABS: ANISOCYTOSIS 1+; MACROCYTOSIS 0; OVALOCYTE 2+
[2021-09-16] MEDS ORDERED: LORazepam 2 MG/ML SDV VIAL IM ONE (11:21)
[2021-09-16] MEDS ORDERED: LORazepam 2 MG/ML SDV VIAL IVPUSH ONE (11:21)
[2021-09-16] MEDS: MUPIROCIN 2% TOPICAL OINTMENT FOR DECOLONIZATION NS SCH ×2 (11:41→22:50)
[2021-09-16 12:26] LABS: ARTERIAL BLD GAS O2 SATURATION 96.3 % (95-98); ARTERIAL BLOOD GAS BASE EXCESS 4.7 mmol/L (-2-2); ARTERIAL BLOOD GAS PO2 92.2 mmHg (80-100); ARTERIAL BLOOD GAS pH 7.331 (7.350-7.450)
[2021-09-16 12:30] LABS: ALLENS TEST POSITIVE
[2021-09-16] MEDS ORDERED: ENOXAPARIN NA (PORCINE) 80 MG/0.8 ML DISP.SYRIN SQ SCH (22:00)
[2021-09-16] MEDS: CHLORHEXIDINE GLUCONATE 4% CLEANSER FOR DECOLONIZATION TP SCH (22:50)
[2021-09-16] MEDS: ATORVASTATIN CA 80 MG TABLET (FP) PO SCH (22:50)
[2021-09-16] MEDS: DONEPEZIL HCL 5 MG TABLET (FP) PO SCH (22:50)
[2021-09-17] MEDS: methylPREDNISolone NA SUCC 40 MG/1 ML VIAL IVPUSH SCH ×3 (01:00→22:20)
[2021-09-17] MEDS: FUROSEMIDE 40 MG/4 ML INJECTABLE VIAL IVPUSH SCH ×2 (06:52→15:28)
[2021-09-17 07:53] LABS: ARTERIAL BLD GAS O2 SATURATION 96.7 % (95-98); ARTERIAL BLOOD GAS BASE EXCESS 10.7 mmol/L (-2-2); ARTERIAL BLOOD GAS PO2 87.4 mmHg (80-100); ARTERIAL BLOOD GAS pH 7.433 (7.350-7.450)
[2021-09-17 07:58] LABS: ALLENS TEST POSITIVE; VENT MODE S/T; VENT RATE 14
[2021-09-17 08:01] LABS: MAGNESIUM 2.3 mg/dL (1.8-2.4)
[2021-09-17 08:02] LABS: BLOOD UREA NITROGEN 33.4 mg/dL (7-18)
[2021-09-17 08:03] LABS: ALBUMIN 2.8 g/dl (3.4-5.0); CALCIUM 8.5 mg/dL (8.5-10.1)
[2021-09-17] MEDS: ALBUTEROL SO4 2.5/IPRATROPIUM 0.5 INH SOL 3 ML VIAL.NEB. NEB SCH ×4 (08:04→20:20)
[2021-09-17 08:05] LABS: CREATININE 0.6 mg/dL (0.55-1.3); PHOSPHOROUS 2.2 mg/dL (2.5-4.9)
[2021-09-17 08:06] LABS: BILIRUBIN,TOTAL 0.5 mg/dL (0.2-1)
[2021-09-17 08:18] LABS: HEMATOCRIT 33.6 % (35.4-49); HEMOGLOBIN 11.1 GM/dL (11.7-16.9); MCH 26.8 pg (25.7-33.7); MCHC 33.1 g/dl (32.0-35.9); MEAN PLT VOLUME 8.1 fl (7.5-11.1); PLATELET COUNT 352 10^3/uL (134-434); RBC 4.14 M/mm3 (4.00-5.60); RDW 15.6 % (11.9-15.9); WHITE BLOOD COUNT 9.4 K/mm3 (4.0-10.0)
[2021-09-17] MEDS ORDERED: LIDOCAINE HCL 2% JELLY 10 ML CARTRIDGE ONE (10:06)
[2021-09-17] MEDS: MUPIROCIN 2% TOPICAL OINTMENT FOR DECOLONIZATION NS SCH ×2 (10:24→22:20)
[2021-09-17] MEDS ORDERED: SODIUM CHLORIDE 500 ML IV STA (10:31)
[2021-09-17] MEDS ORDERED: ACETAMINOPHEN 325 MG TABLET (FP) ONE (10:42)
[2021-09-17] MEDS: ASPIRIN COATED 81 MG TABLET.EC PO SCH (15:27)
[2021-09-17] MEDS: TAMSULOSIN HCL 0.4 MG CAP PO SCH (15:27)
[2021-09-17] MEDS: PANTOPRAZOLE SODIUM 40 MG VIAL IVPUSH SCH (15:28)
[2021-09-17 17:55] LABS: BASO % 0.2 % (0-2.0); HEMATOCRIT 33.4 % (35.4-49); HEMOGLOBIN 10.8 GM/dL (11.7-16.9); LYMPH % 7.7 % (8-40); MCH 25.9 pg (25.7-33.7); MCHC 32.2 g/dl (32.0-35.9); MEAN CELL VOLUME 80.5 fl (80-96); MEAN PLT VOLUME 7.8 fl (7.5-11.1); NEUT % 81.1 % (42.8-82.8); PLATELET COUNT 323 10^3/uL (134-434); RBC 4.15 M/mm3 (4.00-5.60); RDW 15.5 % (11.9-15.9); WHITE BLOOD COUNT 12.1 K/mm3 (4.0-10.0)
[2021-09-17] MEDS ORDERED: SODIUM PHOSPHATE - 15 MM in SODIUM CHLORIDE 250 ML IVPB ONE (19:01)
[2021-09-17] MEDS: ATORVASTATIN CA 80 MG TABLET (FP) PO SCH (22:20)
[2021-09-17] MEDS: DONEPEZIL HCL 5 MG TABLET (FP) PO SCH (22:21)
[2021-09-17] MEDS: CHLORHEXIDINE GLUCONATE 4% CLEANSER FOR DECOLONIZATION TP SCH (22:21)
[2021-09-18 06:43] LABS: HEMATOCRIT 33.4 % (35.4-49); HEMOGLOBIN 10.8 GM/dL (11.7-16.9); LYMPH % 5.7 % (8-40); MCH 26.2 pg (25.7-33.7); MCHC 32.4 g/dl (32.0-35.9); MEAN PLT VOLUME 8.1 fl (7.5-11.1); MONO % 4.3 % (3.8-10.2); PLATELET COUNT 329 10^3/uL (134-434); RBC 4.12 M/mm3 (4.00-5.60); RDW 15.8 % (11.9-15.9); WHITE BLOOD COUNT 7.9 K/mm3 (4.0-10.0)
[2021-09-18 07:03] LABS: CALCIUM 8.3 mg/dL (8.5-10.1)
[2021-09-18 07:04] LABS: BLOOD UREA NITROGEN 32.3 mg/dL (7-18); MAGNESIUM 2.3 mg/dL (1.8-2.4)
[2021-09-18 07:07] LABS: CREATININE 0.6 mg/dL (0.55-1.3); PHOSPHOROUS 3.4 mg/dL (2.5-4.9)
[2021-09-18] MEDS: ALBUTEROL SO4 2.5/IPRATROPIUM 0.5 INH SOL 3 ML VIAL.NEB. NEB SCH ×4 (07:15→20:32)
[2021-09-18] MEDS: ASPIRIN COATED 81 MG TABLET.EC PO SCH (09:05)
[2021-09-18] MEDS: TAMSULOSIN HCL 0.4 MG CAP PO SCH (09:05)
[2021-09-18] MEDS: methylPREDNISolone NA SUCC 40 MG/1 ML VIAL IVPUSH SCH ×2 (09:06→23:09)
[2021-09-18] MEDS: MUPIROCIN 2% TOPICAL OINTMENT FOR DECOLONIZATION NS SCH ×2 (09:06→23:09)
[2021-09-18] MEDS: PANTOPRAZOLE SODIUM 40 MG VIAL IVPUSH SCH (09:10)
[2021-09-18] MEDS: FUROSEMIDE 40 MG/4 ML INJECTABLE VIAL IVPUSH SCH (11:17)
[2021-09-18] MEDS ORDERED: INSULIN SLIDING SCALE (NOVOLOG) 1 VIAL SQ SCH (16:30)
[2021-09-18] MEDS: INSULIN SLIDING SCALE (NOVOLOG) 1 VIAL SQ SCH (16:51)
[2021-09-18] MEDS: CHLORHEXIDINE GLUCONATE 4% CLEANSER FOR DECOLONIZATION TP SCH (23:09)
[2021-09-18] MEDS: DONEPEZIL HCL 5 MG TABLET (FP) PO SCH (23:09)
[2021-09-18] MEDS: ATORVASTATIN CA 80 MG TABLET (FP) PO SCH (23:09)
[2021-09-19 07:04] LABS: BASO % 0.1 % (0-2.0); HEMOGLOBIN 10.4 GM/dL (11.7-16.9); LYMPH % 6.9 % (8-40); MCH 26.2 pg (25.7-33.7); MCHC 32.6 g/dl (32.0-35.9); MEAN CELL VOLUME 80.4 fl (80-96); MEAN PLT VOLUME 8.2 fl (7.5-11.1); MONO % 6.4 % (3.8-10.2); NEUT % 86.6 % (42.8-82.8); PLATELET COUNT 289 10^3/uL (134-434); RBC 3.98 M/mm3 (4.00-5.60); RDW 15.5 % (11.9-15.9); WHITE BLOOD COUNT 7.4 K/mm3 (4.0-10.0)
[2021-09-19 07:14] LABS: BLOOD UREA NITROGEN 28.8 mg/dL (7-18); CALCIUM 8.3 mg/dL (8.5-10.1); MAGNESIUM 2.2 mg/dL (1.8-2.4)
[2021-09-19 07:16] LABS: CREATININE 0.6 mg/dL (0.55-1.3)
[2021-09-19] MEDS: INSULIN SLIDING SCALE (NOVOLOG) 1 VIAL SQ SCH ×3 (07:27→16:21)
[2021-09-19] MEDS: ALBUTEROL SO4 2.5/IPRATROPIUM 0.5 INH SOL 3 ML VIAL.NEB. NEB SCH ×4 (08:20→20:10)
[2021-09-19] MEDS: MUPIROCIN 2% TOPICAL OINTMENT FOR DECOLONIZATION NS SCH (09:12)
[2021-09-19] MEDS: TAMSULOSIN HCL 0.4 MG CAP PO SCH (09:12)
[2021-09-19] MEDS: PANTOPRAZOLE SODIUM 40 MG VIAL IVPUSH SCH (09:13)
[2021-09-19] MEDS: ASPIRIN COATED 81 MG TABLET.EC PO SCH (09:13)
[2021-09-19] MEDS: FUROSEMIDE 40 MG/4 ML INJECTABLE VIAL IVPUSH SCH (09:13)
[2021-09-19] MEDS: methylPREDNISolone NA SUCC 40 MG/1 ML VIAL IVPUSH SCH ×2 (09:13→21:46)
[2021-09-19] MEDS ORDERED: ALBUTEROL SO4 0.083% IH SOL 2.5 MG/3 ML VIAL.NEB. NEB PRN (15:58)
[2021-09-19] MEDS: EZETIMIBE 10 MG TABLET (FP) PO SCH ×2 (16:54→21:45)
[2021-09-19] MEDS: ATORVASTATIN CA 80 MG TABLET (FP) PO SCH (21:46)
[2021-09-19] MEDS: DONEPEZIL HCL 5 MG TABLET (FP) PO SCH (21:46)
[2021-09-19] MEDS ORDERED: MUPIROCIN 2% TOPICAL OINTMENT FOR DECOLONIZATION NS SCH (22:00)
[2021-09-20] MEDS: INSULIN SLIDING SCALE (NOVOLOG) 1 VIAL SQ SCH ×3 (06:21→17:37)
[2021-09-20] MEDS: ALBUTEROL SO4 2.5/IPRATROPIUM 0.5 INH SOL 3 ML VIAL.NEB. NEB SCH ×4 (08:18→19:53)
[2021-09-20] MEDS: ALPRAZolam 0.25 MG TABLET PO PRN ×2 (09:32→23:14)
[2021-09-20] MEDS: TAMSULOSIN HCL 0.4 MG CAP PO SCH (09:45)
[2021-09-20 10:21] LABS: BASO % 0.2 % (0-2.0); HEMATOCRIT 31.7 % (35.4-49); HEMOGLOBIN 10.5 GM/dL (11.7-16.9); LYMPH % 6.8 % (8-40); MCH 26.3 pg (25.7-33.7); MCHC 33.2 g/dl (32.0-35.9); MEAN CELL VOLUME 79.1 fl (80-96); MEAN PLT VOLUME 8.3 fl (7.5-11.1); MONO % 8.7 % (3.8-10.2); NEUT % 84.3 % (42.8-82.8); PLATELET COUNT 295 10^3/uL (134-434); RBC 4.01 M/mm3 (4.00-5.60); RDW 15.7 % (11.9-15.9); WHITE BLOOD COUNT 14.3 K/mm3 (4.0-10.0)
[2021-09-20 11:18] LABS: CALCIUM 8.5 mg/dL (8.5-10.1); PHOSPHOROUS 2.8 mg/dL (2.5-4.9)
[2021-09-20 11:19] LABS: ALBUMIN 2.8 g/dl (3.4-5.0); BILIRUBIN,TOTAL 0.9 mg/dL (0.2-1); MAGNESIUM 2.2 mg/dL (1.8-2.4); TOT PROT 5.8 g/dl (6.4-8.2)
[2021-09-20 11:21] LABS: CREATININE 0.6 mg/dL (0.55-1.3)
[2021-09-20] MEDS: ASPIRIN COATED 81 MG TABLET.EC PO SCH (14:41)
[2021-09-20] MEDS: predniSONE 20 MG TABLET (UD) PO SCH (14:41)
[2021-09-20] MEDS: PANTOPRAZOLE SODIUM 40 MG VIAL IVPUSH SCH (14:44)
[2021-09-20] MEDS: FUROSEMIDE 40 MG/4 ML INJECTABLE VIAL IVPUSH SCH (14:44)
[2021-09-20] MEDS ORDERED: MELATONIN 5 MG TABLETS PO PRN (15:28)
[2021-09-20] MEDS: ENOXAPARIN NA (PORCINE) 40 MG/0.4 ML DISP.SYRIN SQ SCH (16:05)
[2021-09-20] MEDS: DONEPEZIL HCL 5 MG TABLET (FP) PO SCH (21:25)
[2021-09-20] MEDS: ATORVASTATIN CA 80 MG TABLET (FP) PO SCH (21:25)
[2021-09-20] MEDS: EZETIMIBE 10 MG TABLET (FP) PO SCH (21:25)
[2021-09-21] MEDS: INSULIN SLIDING SCALE (NOVOLOG) 1 VIAL SQ SCH ×3 (06:24→17:24)
[2021-09-21] MEDS: ALBUTEROL SO4 2.5/IPRATROPIUM 0.5 INH SOL 3 ML VIAL.NEB. NEB SCH ×4 (08:05→20:04)
[2021-09-21] MEDS: TAMSULOSIN HCL 0.4 MG CAP PO SCH (08:39)
[2021-09-21 09:19] LABS: BASO % 0.1 % (0-2.0); EOS % 0.6 % (0-4.5); HEMATOCRIT 31.7 % (35.4-49); HEMOGLOBIN 10.5 GM/dL (11.7-16.9); LYMPH % 13.1 % (8-40); MCH 26.4 pg (25.7-33.7); MCHC 33.2 g/dl (32.0-35.9); MEAN CELL VOLUME 79.5 fl (80-96); MEAN PLT VOLUME 8.2 fl (7.5-11.1); MONO % 11.7 % (3.8-10.2); NEUT % 74.5 % (42.8-82.8); PLATELET COUNT 283 10^3/uL (134-434); RBC 3.98 M/mm3 (4.00-5.60); RDW 15.3 % (11.9-15.9); WHITE BLOOD COUNT 11.9 K/mm3 (4.0-10.0)
[2021-09-21 09:39] LABS: CALCIUM 8.8 mg/dL (8.5-10.1)
[2021-09-21 09:40] LABS: ALBUMIN 2.7 g/dl (3.4-5.0); BLOOD UREA NITROGEN 34.4 mg/dL (7-18); MAGNESIUM 2.2 mg/dL (1.8-2.4)
[2021-09-21 09:44] LABS: BILIRUBIN,TOTAL 0.8 mg/dL (0.2-1); CREATININE 0.8 mg/dL (0.55-1.3); PHOSPHOROUS 2.4 mg/dL (2.5-4.9); TOT PROT 5.7 g/dl (6.4-8.2)
[2021-09-21] MEDS: ASPIRIN COATED 81 MG TABLET.EC PO SCH (10:42)
[2021-09-21] MEDS: predniSONE 20 MG TABLET (UD) PO SCH (10:42)
[2021-09-21] MEDS: FUROSEMIDE 40 MG/4 ML INJECTABLE VIAL IVPUSH SCH (10:42)
[2021-09-21] MEDS: PANTOPRAZOLE SODIUM 40 MG VIAL IVPUSH SCH (10:44)
[2021-09-21] MEDS: ENOXAPARIN NA (PORCINE) 40 MG/0.4 ML DISP.SYRIN SQ SCH (10:44)
[2021-09-21] MEDS ORDERED: GLYCERIN 1 RECTAL SUPPOSITORY, ADULT PR ONE (11:39)
[2021-09-21] MEDS: guaiFENesin 600 MG TABLET.ER (FP) PO SCH ×2 (12:07→21:27)
[2021-09-21] MEDS ORDERED: NAPH,MB-DB/K PH,MBDB POWDER PACKET PO ONE (13:03)
[2021-09-21] MEDS: EZETIMIBE 10 MG TABLET (FP) PO SCH (21:27)
[2021-09-21] MEDS: ATORVASTATIN CA 80 MG TABLET (FP) PO SCH (21:27)
[2021-09-22] MEDS: INSULIN SLIDING SCALE (NOVOLOG) 1 VIAL SQ SCH ×3 (06:39→16:21)
[2021-09-22 07:08] LABS: SARS-CoV-2 NAA Not Detected (Not Detected)
[2021-09-22] MEDS: ALBUTEROL SO4 2.5/IPRATROPIUM 0.5 INH SOL 3 ML VIAL.NEB. NEB SCH ×3 (07:40→16:00)
[2021-09-22] MEDS: ASPIRIN COATED 81 MG TABLET.EC PO SCH (09:25)
[2021-09-22] MEDS: FUROSEMIDE 40 MG/4 ML INJECTABLE VIAL IVPUSH SCH (09:25)
[2021-09-22] MEDS: TAMSULOSIN HCL 0.4 MG CAP PO SCH (09:25)
[2021-09-22] MEDS: ENOXAPARIN NA (PORCINE) 40 MG/0.4 ML DISP.SYRIN SQ SCH (09:25)
[2021-09-22] MEDS: PANTOPRAZOLE SODIUM 40 MG VIAL IVPUSH SCH (09:26)
[2021-09-22] MEDS: guaiFENesin 600 MG TABLET.ER (FP) PO SCH (09:26)
[2021-09-22] MEDS ORDERED: predniSONE 10 MG TABLET (UD) PO SCH (10:00)
[2021-09-22] MEDS ORDERED: POLYETHYLENE GLYCOL (HEALTHYLAX) 3350 17 GM PACKET PO SCH (10:15)
[2021-09-22 14:20] VITALS: BP 111/58; PULSE 88; TEMP 98
[2021-09-22 14:26] VITALS: BMI 27.4
[2021-09-23] MEDS ORDERED: MULTIVITAMINS (DAILY MVI) TABLET (FP) PO SCH (10:00)
[2021-09-24] MEDS ORDERED: predniSONE 20 MG TABLET (UD) PO SCH (10:00)
== END 2021-09-22 18:35 | disposition home or self-care (01) | DRG 280 ==
LOC: JER 10:14 → JERBED 11:03 → JICU 09-15 12:14 → J6S 09-19 15:21 → UNDODISIN 09-22 17:27
PROVIDERS: ADMIT Internal Medicine; ATTEND Internal Medicine
DX: I21.4 Non-ST elevation (NSTEMI) myocardial infarction (principal); I50.33 Acute on chronic diastolic (congestive) heart failure; G93.41 Metabolic encephalopathy; J96.22 Acute and chronic respiratory failure with hypercapnia; J96.21 Acute and chronic respiratory failure with hypoxia; J90 Pleural effusion, not elsewhere classified; J98.11 Atelectasis; I31.3 Pericardial effusion (noninflammatory); J44.1 Chronic obstructive pulmonary disease with (acute) exacerbation; E87.2 Acidosis; N17.9 Acute kidney failure, unspecified; I11.0 Hypertensive heart disease with heart failure; E78.5 Hyperlipidemia, unspecified; I25.10 Atherosclerotic heart disease of native coronary artery without angina pectoris; I45.10 Unspecified right bundle-branch block; Z98.61 Coronary angioplasty status; R33.9 Retention of urine, unspecified; R31.9 Hematuria, unspecified
CPT/HCPCS: 36415; 36600; 70450-TC; 71045-TC-FY; 71275-TC; 78452-TC; 80048; 80053; 80061; 81003; 82140; 82553; 82803; 82962; 83036; 83605; 83735; 83880; 84100; 84439; 84443; 84484; 85025; 85027; 85610; 85730; 86850; 86900; 86901; 87040; 87086; 93005; 93010; 93017; 93306-TC; 93880-TC; 94010; 94640; 94660; 94761; 97116-GP; 97162-GP; 99285-25; A9502; C9803-CS; Q9967; U0003; U0005